=== PATIENT | female | born 1955 | race Caucasian/White ===

== ENCOUNTER → 2017-01-10 08:51 | Outpatient (CLI) | payer BC | END | disposition home or self-care (01) | LOC: D.US 08:51 | DX: N83.209 Unspecified ovarian cyst, unspecified side (principal) ==

== ENCOUNTER → 2017-03-18 15:07 | Outpatient (CLI) | payer BC | END | disposition home or self-care (01) | LOC: D.MRI 15:07 | DX: M25.511 Pain in right shoulder (principal) ==

== ENCOUNTER → 2017-03-28 19:28 | Outpatient (CLI) | payer BC | END | disposition home or self-care (01) | LOC: D.LABREF 19:28 | DX: M19.011 Primary osteoarthritis, right shoulder (principal); Z11.8 Encounter for screening for other infectious and parasitic diseases ==

== ENCOUNTER 2017-10-29 05:30 | Inpatient (IN) | payer BC ==
[2017-10-28 12:29] LABS: BASOPHILS 0.5 % (0-2); EOSINOPHILS 3.5 % (0-7); HEMATOCRIT 37.3 % (36.0-48.0); HEMOGLOBIN 12.8 g/dL (12-16); IMMATURE GRANULOCYTES 0.2 % (0-5); MCH 31.4 pg (26.0-34.0); MCHC 34.3 g/dL (31.0-37.0); MCV 91.4 fL (80.0-100.0); MEAN PLATELET VOLUME 9.9 fL (7.4-10.4); MONOCYTES 8.5 % (2-11); NEUTROPHILS 53.3 % (40-80); PLATELET COUNT 191 10x3/uL (130-400); RBC 4.08 10x6/uL (4.00-5.40); RDW 12.4 % (11.5-14.5)
[2017-10-28 12:49] LABS: CALC OSMOLALITY 281 mosm/kg (275-300); CALCIUM 8.7 mg/dL (8.5-10.1); CARBON DIOXIDE 25.5 mmol/L (21.0-32.0); CHLORIDE - SERUM 105 mmol/L (98-107); CREATININE - SERUM 0.6 mg/dL (0.6-1.3); GLUCOSE 134 mg/dL (74-106); POTASSIUM - SERUM 4.1 mmol/L (3.5-5.1); SODIUM 139 mmol/L (136-145); UREA NITROGEN 17 mg/dL (7-18); eGFR NON AFRICAN AMERICAN > 90 mL/min (90-120)
[2017-10-28 12:50] LABS: APTT 24.1 SECONDS (22.8-39.4); INR 0.95 (0.85-1.17); PROTIME 12.3 SECONDS (11.6-15.0)
[2017-10-28 12:51] LABS: APPEARANCE HAZY (CLEAR); BACTERIA MODERATE /hpf (NONE SEEN); BILIRUBIN NEGATIVE (NEGATIVE); COLOR YELLOW (YELLOW); EPITHELIAL CELLS 0-5 /hpf (0-5); GLUCOSE NEGATIVE (NEGATIVE); KETONE NEGATIVE (NEGATIVE); MUCUS <1+ /lpf (NONE SEEN); NITRITE NEGATIVE (NEGATIVE); PROTEIN NEGATIVE (NEGATIVE); SPECIFIC GRAVITY 1.015 (1.005-1.020); UROBILINOGEN NORMAL (NORMAL); WHITE CELLS - URINE OCC /hpf (0-5)
[~2017-10-29] VITALS: Ht 152.4 cm; Wt 102.3 kg
[~2017-10-29 05:30] MED LIST: BACTROBAN NASAL1 GM NASAL; DULERA 100 MCG8.8 GM INH; OMEPRAZOLE40 MG PO; PROZAC20 MG PO; SPIRIVA18 MCG INH; TRAZODONE HCL50 MG PO; VITAMIN C1000 MG PO; VITAMIN D31000 UNIT PO; ZESTRIL40 MG PO; ZYRTEC10 MG PO
--- NOTE | 2017-10-29 07:36 | NUR ---
0715 REPORT RESULTS REVIEWED WITH DR. YI. NO ORDERS RECEIVED. Shraddha THOMAS R.N.
[2017-10-29 08:42] VITALS: BP 124/62; BMI 44.0
--- NOTE | 2017-10-29 11:43 | NUR ---
RIGHT SHOULDER PREP WITH FIRST HIBACLEANS AND ALCOHOL, DRY WITH TOWEL, THEN STERILE PREP WITH CHLORAPREP SHOULDER, ARM PIT TO FINGERS
[2017-10-29 14:16] VITALS: BP 136/75
--- NOTE | 2017-10-29 14:30 | NUR ---
TO ROOM 2210 FROM PACU VIA BED.ASSESSMENT PER FLOW SHEET.PT WITHOUT DISTRES.DRESSING RIGHT SHOULDER CDI WITH SLING IN PLACE.CALL LIGHT IN REACH
[2017-10-29 14:50] VITALS: BP 136/75; Ht 152.4 cm; Wt 102.3 kg
--- NOTE | 2017-10-29 15:39 | OP ---
PATIENT NAME: JOVANI FRNAKS MEDICAL RECORD: [id number] :51 LOCATION:[facility] ADMISSION DATE:10/29/17 SURGEON: BOAZ YI DO DATE OF OPERATION: 10/29/2017 DATE OF PROCEDURE: 10/29/2017 PROCEDURE PERFORMED: Right total shoulder arthroplasty. PREOPERATIVE DIAGNOSIS: Right shoulder osteoarthritis, end-stage. POSTOPERATIVE DIAGNOSIS: Right shoulder osteoarthritis, end-stage. INDICATIONS: Ms. Franks is a 62-year-old right hand dominant female who presented to my office earlier this fall complaining of right shoulder and decreased range of motion. She wanted something done to her shoulder. As far as a replacement, MRI was done. It seemed that her rotator cuff was intact and once this was done, we decided to do a total shoulder arthroplasty; however, she wanted to wait to get her better who had been having seizures and she reported this to me and said that now she is ready for it. She was warned of risks and benefits of the procedure and decided to proceed forward. SURGEON: Boaz Yi DO ESTIMATED BLOOD LOSS: Approximately 200 mL. COMPLICATIONS: None. The patient was given 900 mg of clindamycin preoperatively. DESCRIPTION OF PROCEDURE: The patient was in the preoperative area given a block per anesthesia and taken to the operative suite and laid in supine position and given general anesthetic. Once this was done and the clindamycin was put in, the right arm was prepped and draped in sterile fashion. The patient was placed in the beach chair position. All bony prominences were well padded. After this was done, the patient was prepped and draped. A timeout was performed and everyone was in agreeance of correct site, side, and patient. The incision then began in the deltopectoral interval down to the deltopectoral fascia, which was divided. The cephalic vein was taken medially and the clavipectoral fascia was incised as well. The biceps tendon was encountered as well as the top of the pec tendon which was released proximal first centimeter and the biceps tendon was tenodesed to the stump of the pec tendon at that side and the tenotomy was done in the biceps tendon there. Biceps tendon was then followed up into the bicipital groove into the joint. The rotator interval was opened and once this was done, the subscap was peeled off of the lesser tuberosity and tagged. The very arthritic shoulder was then exposed. Osteophytes were treated off the anterior-inferior portion of the humeral head, which were quite large. After this was done, the intramedullary guide was placed and the cut was made from the humeral head. After the cut was made, the glenoid was exposed. The subscap was released on the anterior portion of the scapula. In order to get good exposure, the labrum was removed as was rest of bicep tendon. A centering pin was then placed and overdrilled and the reamer was used also on the glenoid. Once this was done, it was sized and seen to be a 30, small the glenoid was and the holes were drilled for it. A trial was put into place, seeming to be very good position. Then, the cement was mixed and placed into the peripheral 3 holes and the implant was placed in the glenoid and OPERATIVE REPORT [id number] JOVANI FRANKS malleted into place. The humerus was then exposed and broached to a 4, which was seen to be good fit with 30 degrees of retroversion using the rods alignment off the broach handles. The planer was then used to plane down the proximal humerus at the cut. After this was done, the trial was used, 41 trial with a high offset, 41 x 15 which was seen to be a very good size. The shoulder was reduced and seen to have good movement as well as pressed posteriorly, subluxed 50%, bounced right back. After this was seen, the implant was prepped and irrigation was made. The drill holes were made for the subscap repair. After this was done, the implant was put into place and malleted into place. The shoulder was reduced. The subscap was repaired with Addy Mike sutures and then tied and then over tied with the tag sutures that had been previously placed. The rotator interval was then closed with #2 Ethibond and 2 hanejj-ox-dolhu sutures and the shoulder was seen to be in good position at that point. After this was done, careful coagulation was made of any bleeders and then irrigation and then Dennis was placed into the wound. The deltopectoral interval was closed with #1 Vicryl in simple fashion and then the skin was closed with inverted interrupted 2-0 Vicryl stitches and then Prineo was placed over the incision site. After the Prineo was placed Adaptic, 4 x 4s, ABD were placed over that. The patient was put into a sling and awakened and taken to recovery in stable condition. TRANSINT:[id number] Voice Confirmation ID: [id number] DOCUMENT ID: [id number] BOAZ YI DO at 1539 CC: [id number] DICTATION DATE: 10/29/17 1335 COMMUNICATIONS PROFESSIONAL: 10/29/17 1523 ADM IN [facility] [id number] [place] [address]
--- NOTE | 2017-10-29 17:27 | NUR ---
DENIES PAIN AT PRESENT.WITHOUT CHANGE FROM POST OP ADMISSION ASSESSMENT.CONT PLAN OF CARE
[2017-10-29 20:00] VITALS: BP 134/63
[2017-10-30] VITALS: BP 140/62
[2017-10-30 06:35] LABS: MCH 31.6 pg (26.0-34.0); MCHC 34.1 g/dL (31.0-37.0); MCV 92.7 fL (80.0-100.0); MEAN PLATELET VOLUME 9.3 fL (7.4-10.4); RDW 12.4 % (11.5-14.5); WBC 8.7 10x3/uL (4.8-10.8)
[2017-10-30 06:39] LABS: HEMOGLOBIN 9.9 g/dL (12-16); RBC 3.13 10x6/uL (4.00-5.40)
--- NOTE | 2017-10-30 06:59 | NUR ---
EYES CLOSED RESPIRATIONS WITH EASE AND UNLABORED.
[2017-10-30 07:57] VITALS: BP 90/52
[2017-10-30 08:08] LABS: ANION GAP 12.4 mmol/L (8-16); BILIRUBIN - TOTAL 0.3 mg/dL (0.2-1.3); CALCIUM 8.2 mg/dL (8.5-10.1); CARBON DIOXIDE 28.2 mmol/L (21.0-32.0); POTASSIUM - SERUM 4.6 mmol/L (3.5-5.1); PROTEIN - SERUM 5.4 g/dL (6.4-8.2)
[2017-10-30 08:11] LABS: CREATININE - SERUM 0.9 mg/dL (0.6-1.3)
--- NOTE | 2017-10-30 10:57 | NUR ---
Patient Name: JOVANI HOLDER Admission Status: Elective Accout number: [id number] Admission Date: 10-29-2017 : 1955 Admission Diagnosis: Attending: ELLEN YI Current LOS: 1 Anticipated DC Date: Planned Disposition: Home Primary Insurance: [employer] OUT OF STATE Discharge Planning Comments: CM met with patient to assess discharge planning needs. 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 She has one step to enter in her home. She has a CPAP machine. She does not use any other DME or HH and does not think she will need it when she is discharged. CM will continue to follow and assist with discharge planning needs. PCP: [facility] by Caitlynyan[facility] Hamilton () [phone] Salesperson Books: Kathy Solano * Is the patient Alert and Oriented? Yes 0 * How many steps to enter\exit or inside your home? 1 0 * PCP [facility] 0 * Pharmacy [facility] * Preadmission Environment Home with Family 0 * ADLs Independent 0 * Equipment CPAP 0 * List name and contact numbers for known caregivers / representatives who currently or will assist patient after discharge: LORY HOLDER () [phone] * Community resources currently utilized None 0 * Additional services required to return to the preadmission environment? No 0 * Can the patient safely return to the preadmission environment? Yes 0 * Has this patient been hospitalized within the prior 30 days at any hospital? No 0 Grand Total: 0
[2017-10-30 12:30] VITALS: BP 103/56
--- NOTE | 2017-10-30 13:51 | NUR ---
DR. DE LA TORRE PAGED REGARDING EPIDURAL
[2017-10-30 15:47] VITALS: BP 125/57
--- NOTE | 2017-10-30 18:17 | NUR ---
ADJUSTED SLING AND ASSIST PT UP TO BEDSIDE.TOLERATED WELL.MONITOR
[2017-10-30 20:00] VITALS: BP 122/57
[2017-10-31] VITALS: BP 126/59
[2017-10-31 04:00] VITALS: BP 130/60
[2017-10-31 06:08] LABS: HEMATOCRIT 26.1 % (36.0-48.0); HEMOGLOBIN 8.7 g/dL (12-16); MCH 31.2 pg (26.0-34.0); MCHC 33.3 g/dL (31.0-37.0); MCV 93.5 fL (80.0-100.0); MEAN PLATELET VOLUME 9.9 fL (7.4-10.4); RBC 2.79 10x6/uL (4.00-5.40); WBC 6.8 10x3/uL (4.8-10.8)
[2017-10-31 07:50] VITALS: BP 96/47
[2017-10-31] MEDS ORDERED: BACTRIM DS TABL1 TAB PO (08:04)
[2017-10-31] MEDS ORDERED: ULTRAM50 MG PO (08:04)
--- NOTE | 2017-10-31 08:09 | NUR ---
REC'D. AT [facility] OF SHIFT.ASSISTED TO BR.SLING WITH EPIDURAL BLOCK IN PLACE NEUROVASCULAR STATUS TO RIGHT HAND WNL NAILBEDS PINK BLANCHES WELL GOOD RADIAL PULSE.WILL CONTINUE TO MONITOR FOR ANY CHGES. IN NEURO VASCULAR STATUS AND FOLLOW CURRENT PLAN OF CARE.
--- NOTE | 2017-10-31 14:33 | NUR ---
PT DRESSING WAS CHANGES AT THIS TIME AND GIVEN TO PT.PT VOICED UNDERSTANDING OF DISCHARGE INSTRUCTION AND PLAN OF CARE. WAS IN STABLE CONDITION UPON DEPATURE.
== END 2017-10-31 14:35 | disposition home or self-care (01) | DRG 483 ==
LOC: D.SDCHOLD 05:30 → D.MS 05:30 → D.SDCHOLD 09:00 → D.MS 13:57
PROVIDERS: ADMIT Orthopaedic Surgery
PROC: 0RRJ0JZ Replacement of Right Shoulder Joint with Synthetic Substitute, Open Approach (ICD-10-PCS; principal; 2017-10-29 09:00)
DX: M19.011 Primary osteoarthritis, right shoulder (principal); I10 Essential (primary) hypertension; J44.9 Chronic obstructive pulmonary disease, unspecified; F17.200 Nicotine dependence, unspecified, uncomplicated

== ENCOUNTER → 2018-09-19 08:01 | Outpatient (CLI) | payer MEDICARE, BC ==
[2017-10-29 14:50] VITALS: BMI 44.0
[~2018-09-19 08:01] MED LIST changes: +BACTRIM DS TABL1 TAB PO; +ULTRAM50 MG PO
== END | disposition home or self-care (01) ==
LOC: D.RT 09-11 11:00
DX: J44.9 Chronic obstructive pulmonary disease, unspecified (principal)

== ENCOUNTER 2018-11-29 12:03 | Inpatient (IN) | payer MEDICARE, BC ==
[~2018-11-29] VITALS: Ht 152.4 cm; Wt 104.3 kg
[2018-11-29] MEDS ORDERED: BAYER CHEWABLE81 MG PO (12:27)
[2018-11-29] MEDS ORDERED: VENTOLIN HFA18 GM INH (12:27)
[2018-11-29 14:20] VITALS: BP 146/71
[2018-11-29 14:31] LABS: BASOPHILS 0.3 % (0-2); EOSINOPHILS 4.1 % (0-7); HEMATOCRIT 35.5 % (36.0-48.0); HEMOGLOBIN 11.9 g/dL (12-16); IMMATURE GRANULOCYTES 0.3 % (0-5); LYMPHOCYTES 36.2 % (15-50); MCH 30.9 pg (26.0-34.0); MCHC 33.5 g/dL (31.0-37.0); MCV 92.2 fL (80.0-100.0); MEAN PLATELET VOLUME 10.2 fL (7.4-10.4); MONOCYTES 8.6 % (2-11); NEUTROPHILS 50.5 % (40-80); PLATELET COUNT 176 10x3/uL (130-400); RBC 3.85 10x6/uL (4.00-5.40); WBC 7.1 10x3/uL (4.8-10.8)
[2018-11-29 14:52] LABS: ALBUMIN 3.6 g/dL (3.4-5.0); ALKALINE PHOSPHATASE 59 U/L (46-116); ALT (SGPT) 42 U/L (10-68); BILIRUBIN - TOTAL 0.29 mg/dL (0.2-1.3); CALC OSMOLALITY 281 mosm/kg (275-300); CALCIUM 8.9 mg/dL (8.5-10.1); CARBON DIOXIDE 27.1 mmol/L (21.0-32.0); CHLORIDE - SERUM 105 mmol/L (98-107); CREATININE - SERUM 0.7 mg/dL (0.6-1.3); GLUCOSE 102 mg/dL (74-106); POTASSIUM - SERUM 4.2 mmol/L (3.5-5.1); PROTEIN - SERUM 6.3 g/dL (6.4-8.2); SODIUM 141 mmol/L (136-145); UREA NITROGEN 16 mg/dL (7-18); eGFR NON AFRICAN AMERICAN 89 mL/min (90-120)
[2018-11-29 14:58] LABS: LIPASE 183 U/L (73-393); MAGNESIUM - SERUM 1.9 mg/dL (1.8-2.4); PRO BNP 258 pg/mL (0-125)
[2018-11-29 14:59] LABS: TROPONIN-I < 0.017 ng/mL (0.000-0.060)
[2018-11-29 15:20] VITALS: BP 140/68
[2018-11-29 16:10] VITALS: BP 146/59
[2018-11-29 16:39] VITALS: BP 146/54; BMI 46.1
[2018-11-29 16:52] VITALS: BP 146/62
[2018-11-29 20:23] VITALS: BP 111/37
[2018-11-30 01:46] VITALS: BP 121/55
[2018-11-30 05:34] VITALS: BP 129/46
[2018-11-30 08:31] VITALS: BP 156/73
[2018-11-30 10:34] VITALS: Ht 152.4 cm; Wt 104.3 kg
[2018-11-30 11:38] VITALS: BP 121/58
[2018-11-30 16:28] VITALS: BP 116/62
[2018-11-30 20:00] VITALS: BP 104/53
[2018-12-01] VITALS: BP 104/53
[2018-12-01 04:00] VITALS: BP 122/63
[2018-12-01 05:48] LABS: BASOPHILS 0.7 % (0-2); EOSINOPHILS 5.8 % (0-7); HEMATOCRIT 35.3 % (36.0-48.0); HEMOGLOBIN 11.8 g/dL (12-16); IMMATURE GRANULOCYTES 0.2 % (0-5); LYMPHOCYTES 36.8 % (15-50); MCH 30.7 pg (26.0-34.0); MCHC 33.4 g/dL (31.0-37.0); MCV 91.9 fL (80.0-100.0); MEAN PLATELET VOLUME 9.8 fL (7.4-10.4); MONOCYTES 11.9 % (2-11); NEUTROPHILS 44.6 % (40-80); PLATELET COUNT 159 10x3/uL (130-400); RBC 3.84 10x6/uL (4.00-5.40); RDW 12.8 % (11.5-14.5); WBC 5.9 10x3/uL (4.8-10.8)
[2018-12-01 06:05] LABS: ALBUMIN 3.2 g/dL (3.4-5.0); ALKALINE PHOSPHATASE 49 U/L (46-116); ALT (SGPT) 36 U/L (10-68); BILIRUBIN - TOTAL 0.31 mg/dL (0.2-1.3); CALC OSMOLALITY 285 mosm/kg (275-300); CALCIUM 8.9 mg/dL (8.5-10.1); CARBON DIOXIDE 28.2 mmol/L (21.0-32.0); CHLORIDE - SERUM 107 mmol/L (98-107); CREATININE - SERUM 0.8 mg/dL (0.6-1.3); GLUCOSE 102 mg/dL (74-106); MAGNESIUM - SERUM 1.8 mg/dL (1.8-2.4); PHOSPHOROUS 4.2 mg/dL (2.5-4.9); POTASSIUM - SERUM 4.4 mmol/L (3.5-5.1); PROTEIN - SERUM 6.2 g/dL (6.4-8.2); SODIUM 143 mmol/L (136-145); UREA NITROGEN 15 mg/dL (7-18); eGFR NON AFRICAN AMERICAN 76 mL/min (90-120)
[2018-12-01 08:41] VITALS: BP 146/75
[2018-12-01 11:43] VITALS: BP 114/64
[2018-12-01 16:43] VITALS: BP 145/70
[2018-12-01 20:00] VITALS: BP 126/71
[2018-12-02] VITALS: BP 140/70
[2018-12-02 04:00] VITALS: BP 117/45
[2018-12-02 08:24] VITALS: BP 125/67
[2018-12-02 11:09] VITALS: BP 131/74
[2018-12-02 15:39] VITALS: BP 92/58
--- NOTE | 2018-12-02 16:53 | MORECARE ---
CASE MANAGEMENT DISCHARGE SUMMARY PATIENT: JOVANI HOLDER UNIT: [id number] ADM DATE: 11/30/18 AGE: 63 : [birth year] SEX: F ROOM/BED: D.4197 AUTHOR: VIDYA,DOC PHYSICIAN: REFERRING PHYSICIAN: ALYSE VILLANUEVA M.D. DATE OF SERVICE: 12/02/18 Discharge Plan Patient Name: JOVANI HOLDER Facility: [facility]:[place] : 1955 Planned Disposition: Home Anticipated Discharge Date: 12/02/18 Discharge Date: Expected LOS: 2 Initial Reviewer: [email or web address] Initial Review Date: 12/02/2018 Generated: 12/02/18 5:52 pm DCPIA - Discharge Planning Initial Assessment Updated by [email or web address]: David Edwards on 12/02/18 4:52 pm * Is the patient Alert and Oriented? Yes * How many steps to enter\exit or inside your home? * PCP DR. DANG * Pharmacy [facility] * Preadmission Environment Home with Family * ADLs Independent * Equipment BIPAP Nebulizer Other * Other Equipment KIM UNIT HALTER HEART MONITOR RECEIVED TODAY AT HOME, 12-02-18 [employer] - MEDICAL EQUIPMENT PROVIDER * List name and contact numbers for known caregivers / representatives who currently or will assist patient after discharge: LORY HOLDER, SPOUSE, * Verbal permission to speak to the caregivers and representatives has been obtained from the patient. Yes * Community resources currently utilized None * Please name any agencies selected above. NONE * Additional services required to return to the preadmission environment? No * Can the patient safely return to the preadmission environment? Yes * Has this patient been hospitalized within the prior 30 days at any hospital? No Coverage Notice Reviewer: [id number] - Amalia Garrett Notice Issued Date-Time: 11/30/2018 17:55 Notice Type: Medicare Outpatient Observation Notice Notice Delivered To: Patient Relationship to Patient: Clipping Marker Name: Delivery Method: HAND - Hand Delivered June Days: Prior Verbal Notification: Recipient Understood Notice: Recipient Signature: Med Rec Note Co-signed by Attending: Coverage Notice Comment: FLOOD delivered, discussed, signed by patient, and copy left w/ patient. Patient Name: JOVANI HOLDER Page [phone] at 1653 All edits/amendments must be made on the electronic document DICTATION DATE: 12/02/181651 SKULL GRINDER: JUAN M 12/02/181651 RPT#: [id number] DC DATE: STATUS: ADM IN [facility] [address] [place] [address] END OF REPORT
--- NOTE | 2018-12-02 17:01 | MORECARE ---
CASE MANAGEMENT DISCHARGE SUMMARY PATIENT: JOVANI HOLDER UNIT: [id number] ADM DATE: 11/30/18 AGE: 63 : 51 SEX: F ROOM/BED: D.6409 AUTHOR: VIDYA,DOC PHYSICIAN: REFERRING PHYSICIAN: ALYSE VILLANUEVA M.D. DATE OF SERVICE: 12/02/18 Discharge Plan Patient Name: JOVANI HOLDER Facility: [facility]:[place] : 1955 Planned Disposition: Home Anticipated Discharge Date: 12/02/18 Discharge Date: Expected LOS: 2 Initial Reviewer: [email or web address] Initial Review Date: 12/02/2018 Generated: 12/02/18 6:01 pm Comments DCP- Discharge Planning Updated by [email or web address]: David Edwards on 12/02/18 3:[address] Patient Name: JOVANI HOLDER Admission Status: ER Accout number: [id number] Admission Date: 11-30-2018 : 1955 Admission Diagnosis: Attending: ALYSE VILLANUEVA Current LOS: 2 Anticipated DC Date: 12-02-2018 Planned Disposition: Home Primary Insurance: MEDICARE A & B Discharge Planning Comments: CM MET WITH PT IN ROOM TO DISCUSS DISCHARGE PLANNING AND NEEDS. PT REPORTS LIVING AT HOME INDEPENDENTLY WITH HER SPOUSE. PT HAS BIPAP, KIM ELECTRICAL STILULATION UNIT AND NEBULIZER FROM [facility]. PT JUST RECEIVED TODAY A HALTER HEART MONITOR TO WEAR AT HOME ALSO. PT HAS NO OUTSIDE SERVICES ASSISTING IN THE HOME. CM DISCUSSED AVAILABILITY OF HOME HEALTH, REHAB SERVICES AND MEDICAL EQUIPMENT. PT DENIES DISCHARGE NEEDS, REPORTS HER SPOUSE WILL PICK HER UP FOR DISCHARGE HOME. IMPORTANT MESSAGE FROM MEDICARE PROVIDED AND EXPLAINED. SOLAR LAB TECHNICIAN NURSE NOTIFIED. Production Generalist: David Edwards DCPIA - Discharge Planning Initial Assessment Updated by [email or web address]: David Edwards on 12/02/18 4:52 pm * Is the patient Alert and Oriented? Yes * How many steps to enter\exit or inside your home? * PCP DR. DANG * Pharmacy [facility] * Preadmission Environment Home with Family * ADLs Independent * Equipment BIPAP Nebulizer Other * Other Equipment KIM UNIT HALTER HEART MONITOR RECEIVED TODAY AT HOME, 12-02-18 [facility] - MEDICAL EQUIPMENT PROVIDER * List name and contact numbers for known caregivers / representatives who currently or will assist patient after discharge: LORY HOLDER, SPOUSE, * Verbal permission to speak to the caregivers and representatives has been obtained from the patient. Yes * Community resources currently utilized None * Please name any agencies selected above. NONE * Additional services required to return to the preadmission environment? No * Can the patient safely return to the preadmission environment? Yes * Has this patient been hospitalized within the prior 30 days at any hospital? No Coverage Notice Reviewer: [email or web address] Augustine Garrett Notice Issued Date-Time: 11/30/2018 17:55 Notice Type: Medicare Outpatient Observation Notice Notice Delivered To: Patient Relationship to Patient: River Tester Name: Delivery Method: HAND - Hand Delivered June Days: Prior Verbal Notification: Recipient Understood Notice: Recipient Signature: Med Rec Note Co-signed by Attending: Coverage Notice Comment: FLOOD delivered, discussed, signed by patient, and copy left w/ patient. Reviewer: [email or web address] Augustine Edwards Notice Issued Date-Time: 12/02/2018 16:00 Notice Type: IM Discharge Notice Notice Delivered To: Patient Relationship to Patient: River Tester Name: Delivery Method: HAND - Hand Delivered June Days: Prior Verbal Notification: Recipient Understood Notice: Yes Recipient Signature: Yes Med Rec Note Co-signed by Attending: Coverage Notice Comment: Last DP export: 12/02/18 3:52 pm Patient Name: JOVANI HOLDER Page [id number] at 1701 All edits/amendments must be made on the electronic document DICTATION DATE: 12/02/181700 INSPECTOR RAG SORTING: JUAN M 12/02/181700 RPT#: [id number] DC DATE: STATUS: ADM IN [facility] [address] [place] [address] END OF REPORT
== END 2018-12-02 17:50 | disposition home or self-care (01) | DRG 149 ==
LOC: D.ER 12:03 → OBSVTIME 15:28 → D.EDHOLD 15:28 → D.M2 16:24
PROVIDERS: Family Medicine; ADMIT Internal Medicine Cardiovascular Disease
DX: H81.10 Benign paroxysmal vertigo, unspecified ear (principal); H83.90 Unspecified disease of inner ear, unspecified ear; F32.9 Major depressive disorder, single episode, unspecified; G47.00 Insomnia, unspecified; I10 Essential (primary) hypertension; R00.1 Bradycardia, unspecified

== ENCOUNTER → 2019-01-27 12:25 | Outpatient (CLI) | payer MEDICARE, BC ==
[2018-11-30 10:34] VITALS: BMI 46.1
[~2019-01-27 12:25] MED LIST changes: +BAYER CHEWABLE81 MG PO; +VENTOLIN HFA18 GM INH
== END | disposition home or self-care (01) ==
LOC: D.RAD 12:25
PROVIDERS: ATTEND Internal Medicine Pulmonary Disease
DX: T17.928A Food in respiratory tract, part unspecified causing other injury, initial encounter (principal)

== ENCOUNTER 2019-10-07 09:00 | Outpatient (CLI) | payer MEDICARE, BC ==
[2018-11-30 10:34] VITALS: BMI 46.1
== END 2019-10-07 10:00 | disposition home or self-care (01) ==
LOC: D.MAMMO 09:00
PROVIDERS: ATTEND Family Medicine
DX: Z12.31 Encounter for screening mammogram for malignant neoplasm of breast (principal)